=== PATIENT | female | born 1945 | race Hispanic/Latino ===

== ENCOUNTER 2022-05-18 15:02 | Outpatient (CLI) | payer MEDICARE, OTHER | END 2022-05-18 15:03 | disposition home or self-care (01) | LOC: CSHMAMMO 15:02 | PROVIDERS: ATTEND Nurse Practitioner Family | DX: Z12.31 Encounter for screening mammogram for malignant neoplasm of breast (principal); Z80.3 Family history of malignant neoplasm of breast | CPT/HCPCS: 77063; 77067 ==

== ENCOUNTER 2024-01-11 13:20 | Outpatient (CLI) | payer OTHER, MEDICAID | END 2024-01-11 13:21 | disposition home or self-care (01) | LOC: CSHCT 13:20 | PROVIDERS: ATTEND Nurse Practitioner Family | DX: Z12.2 Encounter for screening for malignant neoplasm of respiratory organs (principal); F17.210 Nicotine dependence, cigarettes, uncomplicated; I71.40 Abdominal aortic aneurysm, without rupture, unspecified | CPT/HCPCS: 71271 ==

== ENCOUNTER 2024-04-23 11:19 | Inpatient (IN) | payer OTHER, MEDICAID ==
[2024-04-23] MEDS ORDERED: Ondansetron PF 4 MG/2 ML Vial ONE (11:43)
[2024-04-23] MEDS ORDERED: Ketorolac Tromethamine 30 MG (1 mL) VIAL ONE (11:43)
[2024-04-23 12:26] LABS: #Basophils 0.05 10x3/uL (0.0-0.2); #Eosinophils 0.04 10x3/uL (0.0-0.5); #Monocytes 1.03 10x3/uL (0.0-1.1); #Neutrophils 9.28 10x3/uL (1.5-8.4); %Basophils 0.4 % (0.0-2.0); %Eosinophils 0.3 % (0.0-6.0); %Lymphocytes 10.3 % (18.0-47.0); %Monocytes 8.8 % (0.0-10.0); %Neutrophils 79.3 % (40.0-75.0); Hematocrit 40.8 % (34.9-44.5); Hemoglobin 13.6 g/dL (12.0-15.5); Mean Corpuscular HGB CONC 33.3 g/dL (32.0-36.0); Mean Corpuscular Hemoglobin 27.5 pg (27.0-33.0); Mean Corpuscular Volume 82.6 fL (81.6-98.3); Mean Platelet Volume 8.1 fL (7.4-10.4); Platelet Count 680 10x3/uL (150-450); Red Blood Cell (RBC) Count 4.94 10x6/uL (3.90-5.03)
[2024-04-23 12:30] LABS: Bilirubin Neg (Negative); Blood, Urine 250 (Negative); Clarity Cloudy (Clear); Glucose, Urine (Dipstick) Normal (Negative); Ketone, Urine 5 mg/dL (Negative); Leukocyte 500 (Negative); Nitrite Negative (Negative); Protein, Urine (Dipstick) 500 mg/dl (Neg-Trace); Specific Gravity, Urine 1.025 (1.005-1.030); Urobilinogen Normal mg/dL (Less than 2)
[2024-04-23 12:49] LABS: ALT (SGPT) 10 U/L (Less than 34); AST (SGOT) 21 U/L (11-34); Albumin 2.6 g/dL (3.1-4.5); Alkaline Phosphatase 77 U/L (40-110); Anion Gap 18 mmol/L (10-20); BUN (Urea Nitrogen) 10 mg/dL (9.8-20.1); Bilirubin, Total 0.4 mg/dL (0.3-1.2); Calc. Creatinine Clearance 0 mL/min (70-130); Carbon Dioxide 24 mmol/L (23-31); Chloride 98 mmol/L (98-107); Estimated GFR 95; Globulin 5.4 g/dL (2.4-3.5); Glucose 113 mg/dL (83-110); Lipase 14 U/L (8-78); Potassium 3.1 mmol/L (3.5-5.1); Sodium 137 mmol/L (136-145)
[2024-04-23 13:09] LABS: Bacteria/HPF 4+ HPF (None Seen); CAUTI Indications for Culture Pelvic or flank pain; Squamous Epithelial 0-3 HPF (0-3); Urine Culture Reflex Yes Yes; WBC/HPF Greater than 50 HPF (0-3)
[2024-04-23] MEDS ORDERED: Iopamidol 300 61% 100 ML VIAL FS ONE (14:03)
[2024-04-23] MEDS ORDERED: Piperacillin/Tazobactam 3.375 GM VIAL ONE (14:11)
[2024-04-23] MEDS ORDERED: Senokot S 8.6-50 MG TAB PO PRN (15:35)
[2024-04-23] MEDS ORDERED: Ondansetron ODT 4 MG TAB PO PRN (15:35)
[2024-04-23] MEDS ORDERED: Bisacodyl 5 MG TAB PO PRN (15:35)
[2024-04-23] MEDS ORDERED: Acetaminophen 325 MG TAB PO PRN (15:35)
[2024-04-23] MEDS ORDERED: Bisacodyl 10 MG SUPP PR PRN (15:35)
[2024-04-23] MEDS ORDERED: Ondansetron PF 4 MG/2 ML Vial IVP PRN (15:35)
[2024-04-23] MEDS ORDERED: Electrolyte Replacement Protocol 1 EACH FS SCH (15:45)
[2024-04-23 16:10] VITALS: BMI 23.3
[2024-04-23] MEDS ORDERED: Ketorolac Tromethamine 30 MG (1 mL) VIAL IVP PRN (16:12)
[2024-04-23] MEDS: Lactated Ringer's 1,000 ML IV SCH (16:43)
[2024-04-23] MEDS: Magnesium 2 GM/50 ML(in water) 2 GM in Premix 1 BAG IVPB SCH (16:47)
[2024-04-23] MEDS ORDERED: traMADol HCl 50 MG TAB PO PRN (17:38)
[2024-04-23] MEDS ORDERED: Morphine 2 MG/ML VIAL SLOW IVP PRN (17:38)
[2024-04-23] MEDS: Potassium Chloride 20 MEQ in Premix 1 BAG IVPB SCH (17:44)
[2024-04-23] MEDS ORDERED: Piperacillin/Tazobactam 3.375 GM in Sodium Chloride 0.9% 100 ML IVPB SCH (18:30)
[2024-04-23] MEDS: Piperacillin/Tazobactam 3.375 GM in Sodium Chloride 0.9% 100 ML IVPB SCH (20:41)
[2024-04-23] MEDS: traZODone HCl 50 MG TAB PO SCH (20:42)
[2024-04-23] MEDS: Pantoprazole 40 MG DR.TAB PO SCH (20:42)
[2024-04-23] MEDS: Atorvastatin Calcium 40 MG TAB PO SCH (20:42)
[2024-04-23] MEDS: Potassium Chloride 20 MEQ TAB PO SCH (20:42)
[2024-04-23] MEDS ORDERED: Famotidine 20 MG TAB PO SCH (21:00)
[2024-04-24] MEDS: Piperacillin/Tazobactam 3.375 GM in Sodium Chloride 0.9% 100 ML IVPB SCH (00:23)
[2024-04-24 04:31] LABS: #Basophils 0.04 10x3/uL (0.0-0.2); #Eosinophils 0.18 10x3/uL (0.0-0.5); #Monocytes 0.91 10x3/uL (0.0-1.1); %Basophils 0.4 % (0.0-2.0); %Eosinophils 1.7 % (0.0-6.0); %Lymphocytes 10.6 % (18.0-47.0); %Monocytes 8.4 % (0.0-10.0); %Neutrophils 78.3 % (40.0-75.0); Hematocrit 34.1 % (34.9-44.5); Mean Corpuscular HGB CONC 32.3 g/dL (32.0-36.0); Mean Corpuscular Hemoglobin 27.8 pg (27.0-33.0); Mean Corpuscular Volume 86.1 fL (81.6-98.3); Mean Platelet Volume 8.4 fL (7.4-10.4); Platelet Count 555 10x3/uL (150-450); RBC Distribution Width 13.2 % (11.5-14.5); Red Blood Cell (RBC) Count 3.96 10x6/uL (3.90-5.03); White Blood Cell (WBC) Count 10.85 10x3/uL (3.5-10.5)
[2024-04-24 04:44] LABS: INR-International Normal Ratio 1.2; PTT 30.5 sec (22.0-33.0); Prothrombin Time 13.2 sec (9.5-12.1)
[2024-04-24 05:45] LABS: ALT (SGPT) Less than 7 U/L (Less than 34); AST (SGOT) 18 U/L (11-34); Alkaline Phosphatase 62 U/L (40-110); Anion Gap 15 mmol/L (10-20); BUN (Urea Nitrogen) 7 mg/dL (9.8-20.1); Bilirubin, Total 0.3 mg/dL (0.3-1.2); Calc. Creatinine Clearance 69 mL/min (70-130); Calcium 7.8 mg/dL (7.8-10.44); Carbon Dioxide 20 mmol/L (23-31); Cardiac Risk 4.1 (Less than 4.5); Chloride 107 mmol/L (98-107); Cholesterol 69 mg/dl (< 200 Desired); Estimated GFR 93; Globulin 3.9 g/dL (2.4-3.5); Glucose 160 mg/dL (83-110); HDL Cholesterol 17 mg/dL (>60 Neg Risk); LDL Cholesterol, Calculated 38 mg/dL; Magnesium 2.2 mg/dL (1.6-2.6); Potassium 3.7 mmol/L (3.5-5.1); Protein, Total 5.9 g/dL (5.8-8.1); Sodium 138 mmol/L (136-145); Triglycerides 71 mg/dL (Less than 150)
[2024-04-24] MEDS: Ipratropium/Albuterol 3 ML NEB NEB SCH (07:52)
[2024-04-24] MEDS: Sertraline 100 MG TAB PO SCH (08:30)
[2024-04-24] MEDS: Amlodipine 10 MG TAB PO SCH (08:45)
[2024-04-24] MEDS ORDERED: Enoxaparin 40 MG (0.4 mL) SYRINGE SC SCH (09:00)
[2024-04-24 09:43] LABS: Iron 26 ug/dL (50-170); Iron Binding Capacity, Total 120 mcg/dL (265-497)
[2024-04-24 14:07] LABS: Hemoglobin A1c 5.8 % (4.0-6.0)
[2024-04-25 04:43] LABS: #Basophils 0.06 10x3/uL (0.0-0.2); #Eosinophils 0.25 10x3/uL (0.0-0.5); #Monocytes 1.26 10x3/uL (0.0-1.1); #Neutrophils 8.85 10x3/uL (1.5-8.4); %Basophils 0.5 % (0.0-2.0); %Eosinophils 2.1 % (0.0-6.0); %Lymphocytes 12.1 % (18.0-47.0); %Monocytes 10.5 % (0.0-10.0); Hematocrit 34.5 % (34.9-44.5); Mean Corpuscular HGB CONC 31.9 g/dL (32.0-36.0); Mean Corpuscular Hemoglobin 27.6 pg (27.0-33.0); Mean Corpuscular Volume 86.7 fL (81.6-98.3); Mean Platelet Volume 8.4 fL (7.4-10.4); Platelet Count 498 10x3/uL (150-450); RBC Distribution Width 13.5 % (11.5-14.5); Red Blood Cell (RBC) Count 3.98 10x6/uL (3.90-5.03); White Blood Cell (WBC) Count 11.97 10x3/uL (3.5-10.5)
[2024-04-25 05:02] LABS: ALT (SGPT) 7 U/L (Less than 34); AST (SGOT) 16 U/L (11-34); Albumin 1.9 g/dL (3.1-4.5); Alkaline Phosphatase 56 U/L (40-110); Anion Gap 11 mmol/L (10-20); BUN (Urea Nitrogen) Less than 4 mg/dL (9.8-20.1); Bilirubin, Total 0.4 mg/dL (0.3-1.2); Calc. Creatinine Clearance 73 mL/min (70-130); Carbon Dioxide 24 mmol/L (23-31); Chloride 111 mmol/L (98-107); Estimated GFR 95; Globulin 3.9 g/dL (2.4-3.5); Glucose 99 mg/dL (83-110); Magnesium 1.9 mg/dL (1.6-2.6); Potassium 3.4 mmol/L (3.5-5.1); Protein, Total 5.8 g/dL (5.8-8.1); Sodium 143 mmol/L (136-145)
[2024-04-25] MEDS: Magnesium 2 GM/50 ML(in water) 2 GM in Premix 1 BAG IVPB SCH (09:33)
[2024-04-25] MEDS: Amoxicillin/Potassium Clav 875 MG TAB PO SCH (09:34)
[2024-04-25] MEDS: Potassium Chloride 20 MEQ TAB PO SCH (09:34)
[2024-04-25 12:21] VITALS: BP 110/58; TEMP 98.6
== END 2024-04-25 13:05 | disposition home or self-care (01) | DRG 393 ==
LOC: CSHERS 11:19 → SUATTDRO 11:19 → CSHTELE 15:18 → OBSVTOIN 04-25 08:19
PROVIDERS: ADMIT Family Medicine; ATTEND Family Medicine
DX: K55.9 Vascular disorder of intestine, unspecified (principal); K57.33 Diverticulitis of large intestine without perforation or abscess with bleeding; N39.0 Urinary tract infection, site not specified; I10 Essential (primary) hypertension; Z87.891 Personal history of nicotine dependence; R31.9 Hematuria, unspecified; T37.3X5A Adverse effect of other antiprotozoal drugs, initial encounter; I71.40 Abdominal aortic aneurysm, without rupture, unspecified; E27.8 Other specified disorders of adrenal gland; B96.89 Other specified bacterial agents as the cause of diseases classified elsewhere; E87.6 Hypokalemia; R73.9 Hyperglycemia, unspecified; D75.839 Thrombocytosis, unspecified; Z79.899 Other long term (current) drug therapy
CPT/HCPCS: 36415; 74177; 80053; 80061; 81001; 82728; 83036; 83540; 83550; 83690; 83735; 84443; 85025; 85046; 85610; 85730; 86850; 86900; 86901; 87040; 87077; 87086; 87186; 93005; 94640; 96361; 96365; 96375; 96376; G0378; J1885; J2405; J2543; J3475; J3480; J7120; J7620; Q9967

== ENCOUNTER 2024-11-07 08:14 | Outpatient (CLI) | payer OTHER, MEDICAID | END 2024-11-07 08:15 | disposition home or self-care (01) | LOC: CSHULT 08:14 | PROVIDERS: ATTEND Surgery | DX: I82.403 Acute embolism and thrombosis of unspecified deep veins of lower extremity, bilateral (principal); R59.0 Localized enlarged lymph nodes | CPT/HCPCS: 93970 ==